=== PATIENT | female | born 1985 | race Caucasian/White ===

== ENCOUNTER 2016-10-28 08:55 | Inpatient (IN) | payer MEDICAID ==
[~2016-10-28] VITALS: Ht 149.9 cm; Wt 71.1 kg
[~2016-10-28 08:55] MED LIST: ACYC800T57 PO; IRON18TA PO; PRED50TA PO; PREN1TAB49 PO
[2016-10-28] MEDS ORDERED: LACTATED RINGER'S 1,000 ML IV SCH (09:08)
[2016-10-28 09:20] VITALS: BP 146/77; RESP 18
[2016-10-28 09:22] VITALS: PULSE 60; Ht 149.9 cm; Wt 71.1 kg
[2016-10-28] MEDS ORDERED: OXYTOCIN 30 UNITS/LR 500 ML IV SCH (09:30)
[2016-10-28] MEDS ORDERED: OXYTOCIN 30 UNITS/LR 500 ML IV PRN ×2 (09:30→18:30)
[2016-10-28] MEDS ORDERED: CEFAZOLIN 2 GM/50 ML (PMX) 50 ML IV SCH (09:30)
[2016-10-28] MEDS ORDERED: METHYLERGONOVINE 0.2 MG INJ IM PRN ×2 (09:30→18:30)
[2016-10-28] MEDS ORDERED: MISOPROSTOL 200 MCG TAB PR PRN ×2 (09:30→18:30)
[2016-10-28] MEDS ORDERED: CARBOPROST 250 MCG INJ IM PRN ×2 (09:30→18:30)
[2016-10-28 09:34] LABS: ADD SCAN DIFF NO
[2016-10-28 09:41] LABS: BASOPHILS % 0.5 % (0.0-2.0); EOSINOPHILS # 0.2 10^3/ul (0.0-0.5); EOSINOPHILS % 2.8 % (0.0-7.0); HEMATOCRIT 32.1 % (37.0-47.0); HEMOGLOBIN 10.3 g/dl (12.0-16.0); LYMPHOCYTES # 2.4 10^3/ul (0.8-2.9); LYMPHOCYTES % 31.7 % (15.0-51.0); MEAN CORPUSCULAR HEMOGLOBIN 26.8 pg (29.0-33.0); MEAN CORPUSCULAR HGB CONC 32.1 g/dl (32.0-37.0); MEAN CORPUSCULAR VOLUME 83.6 fl (82.0-101.0); MEAN PLATELET VOLUME 9.9 fl (7.4-10.4); MONOCYTE # 0.5 10^3/ul (0.3-0.9); MONOCYTES % 6.9 % (0.0-11.0); NEUTROPHIL # 4.3 10^3/ul (1.6-7.5); NUCLEATED RED BLOOD CELLS # 0.1 10^3/ul (0.0-0.0); NUCLEATED RED BLOOD CELLS% 0.8 /100WBC (0.0-0.0); PLATELET COUNT 295 10^3/UL (140-415); RED BLOOD COUNT 3.84 10^6/ul (4.20-5.40); RED CELL DISTRIBUTION WIDTH 15.3 % (11.5-14.5); WHITE BLOOD COUNT 7.5 10^3/ul (4.8-10.8)
[2016-10-28 09:46] LABS: INR 0.88; PROTIME 11.9 Sec (12.2-14.2); PT RATIO 0.9
[2016-10-28 09:47] LABS: PARTIAL THROMBOPLASTIN TIME 27.3 Sec (25.0-35.0)
[2016-10-28] MEDS ORDERED: TERBUTALINE 1 ML ONE (09:57)
[2016-10-28] MEDS ORDERED: TERBUTALINE 1 MG/ML INJ SC ONE (10:00)
[2016-10-28] MEDS ORDERED: AMPICILLIN 2 GM/NS (PMX) 100 ML ONE (10:04)
[2016-10-28] MEDS ORDERED: AMPICILLIN 2 GM/NS (PMX) 100 ML IVPB ONE (10:30)
[2016-10-28] MEDS ORDERED: FENTAnyl 2MCG/ML-ROPIV 0.2% 100 ML ONE (10:34)
[2016-10-28 11:18] LABS: BARBITURATES Negative (NEGATIVE); BENZODIAZEPINES Negative (NEGATIVE)
[2016-10-28 11:20] LABS: CANNABINOIDS Negative (NEGATIVE)
[2016-10-28 11:22] LABS: COCAINE Negative (NEGATIVE); OPIATES Negative (NEGATIVE)
[2016-10-28] MEDS ORDERED: MINERAL OIL LIGHT 10 ML VIAL TOP ONE (11:30)
[2016-10-28] MEDS ORDERED: LIDOCAINE 1% (MPF) 30 ML INJ INJ PRN (13:00)
[2016-10-28] MEDS ORDERED: AMPICILLIN 1 GM/NS (PMX) 50 ML IV SCH (14:00)
--- NOTE | 2016-10-28 16:00 | HP ---
Date/Time of Note Date/Time of Note DATE: 10/28/16 TIME: 15:49 OB - History Hx of Present Free Text/Dictation admitted in early labor with SROM at 36 + weeks Chief Complaint: SROM + Labor pains Estimated Due Date: Nov 23, 2016 : 2 Para: 1 Care: Good Care Ultrasounds: Normal mid trimester US Obstetrical Complications: None Medical Complications: None, Other (previous C/S X 1 ) Past Family/Social History * Past Medical, Surgical, Family and Obstetric Histories reviewed from chart. Blood Type: O+ Rubella: immune RPR/VDRL: Negative GBS Status: Unknown HBsAG: Negative OB Admission Exam Vital Signs Vital Signs Vital Signs Date Time Temp Pulse Resp B/P Pulse Ox O2 Delivery O2 Flow Rate FiO2 10/28/16 09:22 60 10/28/16 09:20 98.8 18 146/77 Room Air Physical Exam HEENT: WNL Heart: Rhythm Normal Lungs: Clear, Equal Abdomen: WNL Extremities: Normal Reflexes: Normal Cervical Dilatation: 3cm Effacement: 75% Station: -2 Membranes: Ruptured Amniotic Fluid: Clear Heart Rate: 140's Accelerations: Accelerations Present Decelerations: No Decelerations Varibility: Moderate Contractions on Admission: < 5 Minutes Apart Date/Time Contractions Began: 10/28/2016 Frequency of Contractions: q4 Duration: >60 secons Intensity: Firm Last 72 hours Lab Results CBC & BMP 10/28/16 09:11 OB Assessment/Plan Other Assessment: PSROM at 36 + weeks previous C/S X 1 labor pains desires sterilization Other plan: proceed with labor MARTHA HUTCHISON MD Oct 28, 2016 16:00
--- NOTE | 2016-10-28 16:06 | LDN ---
Date/Time of Note Date/Time of Note DATE: 10/28/16 TIME: 16:00 Delivery Summary and of a viable over midline episiotomy Placenta Delivered: Spontaneously, Intact & Complete Perineum intact?: No Perineal laceration repair: Episiotomy was repaired in layers with 2 0 Vicryl and 2 0 Chromic Anesthesia type: Epidural Estimated blood loss: 300 Sponge & Needle done & correct: Yes All needle counts correct: Yes Any foreign bodies felt in the: No Problems: Infant Delivery Information Sex Infant Sex: female Apgars 1 Minute: 9 5 Minute: 9 Suctioning Nose & mouth suctioned at sahil: Yes Delee suction performed: No Umbilical Cord Umbilical cord with: 3 Vessels Cord presentations: nuchal cord Nuchal cord present X: 1 Cord Blood was obtained: Yes Mother & Baby Disposition Disposition Mom & Baby to Maternity; Good: Yes (mother and baby were recovered in good condition ) Mom transferred to: Other (maternity ) Baby to NICU: No MARTHA HUTCHISON MD Oct 28, 2016 16:05
[2016-10-28] MEDS ORDERED: NALOXONE (0.4 MG/ML) INJ IV PRN (16:30)
[2016-10-28] MEDS ORDERED: ONDANSETRON 4 MG INJ IV PRN (16:30)
[2016-10-28] MEDS ORDERED: IBUPROFEN 600 MG TAB PO PRN (16:30)
[2016-10-28] MEDS ORDERED: FENTAnyl 2MCG/ML-ROPIV 0.2% 100 ML BAG EPI SCH (16:30)
[2016-10-28] MEDS ORDERED: DIPHENHYDRAMINE 50 MG INJ IV PRN (16:30)
[2016-10-28] MEDS ORDERED: ACETAMINOPHEN/CODEINE #3 TAB PO PRN ×3 (16:30→18:30)
[2016-10-28 18:30] VITALS: BP 148/77; PULSE 56; RESP 18
[2016-10-28] MEDS ORDERED: DIBUCAINE 1% 30 GM OINT PR PRN (18:30)
[2016-10-28] MEDS ORDERED: ZOLPIDEM 5 MG TAB PO PRN (18:30)
[2016-10-28] MEDS ORDERED: WITCH HAZEL/GLYCERIN PAD PR PRN (18:30)
[2016-10-28] MEDS ORDERED: LANOLIN 7 GM TUBE TOP PRN (18:30)
[2016-10-28] MEDS ORDERED: BENZOCAINE 20% 56 ML SPRAY TOP PRN (18:30)
[2016-10-28 20:00] VITALS: BP 112/55; PULSE 63; RESP 18
[2016-10-28] MEDS: MAGNESIUM HYDROXIDE 30ML CUP PO SCH (20:52)
[2016-10-28] MEDS: SENNA/DOCUSATE NA (8.6MG/50MG) TAB PO SCH (20:52)
[2016-10-28] MEDS: LACTATED RINGER'S 1,000 ML IV* SCH (20:53)
[2016-10-29] VITALS: BP 116/59; PULSE 55; RESP 18
[2016-10-29] MEDS: CEPHALEXIN 500 MG CAP PO SCH ×5 (00:07→23:48)
[2016-10-29] MEDS: IBUPROFEN 600 MG TAB PO SCH ×5 (00:07→23:48)
[2016-10-29] MEDS: LACTATED RINGER'S 1,000 ML IV* SCH ×3 (02:21→18:21)
[2016-10-29 04:00] VITALS: BP 103/57; PULSE 57; RESP 18
[2016-10-29 07:25] LABS: ADD SCAN DIFF NO
[2016-10-29 07:32] LABS: BASOPHILS % 0.2 % (0.0-2.0); EOSINOPHILS # 0.1 10^3/ul (0.0-0.5); EOSINOPHILS % 0.9 % (0.0-7.0); HEMOGLOBIN 8.1 g/dl (12.0-16.0); LYMPHOCYTES # 2.1 10^3/ul (0.8-2.9); LYMPHOCYTES % 24.2 % (15.0-51.0); MEAN CORPUSCULAR HEMOGLOBIN 27.1 pg (29.0-33.0); MEAN CORPUSCULAR HGB CONC 32.4 g/dl (32.0-37.0); MEAN CORPUSCULAR VOLUME 83.6 fl (82.0-101.0); MEAN PLATELET VOLUME 10.3 fl (7.4-10.4); MONOCYTE # 0.6 10^3/ul (0.3-0.9); MONOCYTES % 6.5 % (0.0-11.0); NEUTROPHIL # 5.8 10^3/ul (1.6-7.5); NEUTROPHILS % 67.6 % (39.0-77.0); NUCLEATED RED BLOOD CELLS% 0.5 /100WBC (0.0-0.0); PLATELET COUNT 230 10^3/UL (140-415); RED BLOOD COUNT 2.99 10^6/ul (4.20-5.40); RED CELL DISTRIBUTION WIDTH 15.3 % (11.5-14.5); WHITE BLOOD COUNT 8.6 10^3/ul (4.8-10.8)
[2016-10-29 08:20] VITALS: BP 101/50; PULSE 55; RESP 18
[2016-10-29] MEDS: MAGNESIUM HYDROXIDE 30ML CUP PO SCH ×2 (10:15→20:47)
[2016-10-29] MEDS: SENNA/DOCUSATE NA (8.6MG/50MG) TAB PO SCH ×2 (10:16→20:47)
[2016-10-29 16:00] VITALS: BP 106/52; PULSE 56; RESP 18
--- NOTE | 2016-10-29 16:53 | DS ---
Date/Time of Note Date/Time of Note home next day DATE: 10/29/16 TIME: 16:52 Obstetrical Discharge Record Final Diagnosis Final Diagnosis: Term delivered Other Final Diagnosis S/P Vaginal Delivery Obstetrical Delivery: Spontaneous, Episiotomy, Repaired, Successful Complications Other (previous C/S X 1 ) Condition on Discharge Physical Assessment Last Vitals: see nurses notes Voiding: Yes Bowel Movement: Yes Breast: Soft, non-tender, Filling Fundus: Firm Abdomen and Incision: soft BS + Episiotomy: healing Calf Tenderness: No Patient Condition: Good MARTHA HUTCHISON MD Oct 29, 2016 16:53
[2016-10-29] MEDS ORDERED: IBUP-1542 PO (16:55)
--- NOTE | 2016-10-29 16:55 | PD.PPDC ---
DENTAL HYGIENIST MOBILE COORDINATOR Discharge Instruction Provider Information Physician Information 31 y/o female had vagiinal delivery after C/S Diagnosis Final Diagnosis: S/P vaginal delivvery Condition Patient Condition: Good Diet Diet: Resume Regular Diet Activity/Restrictions Activity: Normal Activity May Shower Restrictions: Nothing in the Vagina Return to Work or School: Dec 11, 2016 Follow-up Follow-up with Physician: 4, Week/Weeks (in clinic ) Return to clinic for OB Instructions: Breast Tenderness Depression MARTHA HUTCHISON MD Oct 29, 2016 16:55
[2016-10-29 20:30] VITALS: BP 110/57; PULSE 75; RESP 18
[2016-10-30] MEDS: LACTATED RINGER'S 1,000 ML IV* SCH ×2 (02:21→10:21)
[2016-10-30 04:08] VITALS: BP 107/52; PULSE 51; RESP 18
[2016-10-30] MEDS: CEPHALEXIN 500 MG CAP PO SCH ×2 (05:46→12:31)
[2016-10-30] MEDS: IBUPROFEN 600 MG TAB PO SCH ×2 (05:46→12:31)
[2016-10-30 08:00] VITALS: BP 115/55; PULSE 50; RESP 16
[2016-10-30] MEDS ORDERED: MEASLES,MUMPS,RUBELLA VACCINE INJ SC* ONE (09:00)
[2016-10-30] MEDS: MAGNESIUM HYDROXIDE 30ML CUP PO SCH (09:00)
[2016-10-30] MEDS: SENNA/DOCUSATE NA (8.6MG/50MG) TAB PO SCH (09:00)
[2016-10-30] MEDS ORDERED: VARICELLA VACCINE LIVE/PF 1,350 UNIT/0.5 ML ML SC* ONE (09:00)
[2016-10-30] MEDS ORDERED: DIPHTH/TET/ACEL PERTUSS (ADULT) 0.5 ML VIAL IM* ONE (09:00)
[2016-10-31 16:37] LABS: RUBELLA ANTIBODY - IGG 5.81 index
== END 2016-10-30 16:00 | disposition home or self-care (01) | DRG 775 ==
LOC: L-D 08:55 → OBT 08:55 → L-D 08:56 → OBT 08:56 → L-D 10:07 → PP1 18:15
PROVIDERS: ADMIT Obstetrics & Gynecology; ATTEND Obstetrics & Gynecology
PROC: 10E0XZZ Delivery of Products of Conception, External Approach (ICD-10-PCS; principal; 2016-10-28)
PROC: 0W8NXZZ Division of Female Perineum, External Approach (ICD-10-PCS; 2016-10-28)
DX: O34.211 Maternal care for low transverse scar from previous cesarean delivery (principal); Z37.0 Single live birth; Z3A.36 36 weeks gestation of pregnancy
CPT/HCPCS: 62319; 80307; 84112; 85025; 85610; 85730; 86592; 86703; 86762; 86850; 86900; 86901; 87340; 90715; 90716; 99464; J0290; J0690; J2590; J3010; J3105; J7120